=== PATIENT | female | born 2000 | race Caucasian/White ===

== ENCOUNTER 2022-01-15 14:24 | Outpatient (CLI) | payer OTHER, SELFPAY ==
[2022-01-15 15:27] LABS: Anion Gap 13.6 (5-19); Blood Urea Nitrogen 10 mg/dL (6-20); Calcium 8.3 mg/dL (8.5-10.5); Carbon Dioxide 24 mmol/L (22-29); Chloride 106 mmol/L (98-107); Glomerular Filtration Rate 154.3 mL/min (90-130); Glucose 90 mg/dL (65-115); Osmolality Calculated 289 mOsm/kg (285-295); Potassium 3.6 mmol/L (3.5-5.1); Sodium 140 mmol/L (136-145)
[2022-01-23 23:53] LABS: Plasma Renin Activity LC/MS/MS 0.31 ng/mL/h (0.25-5.82)
== END 2022-01-15 14:25 | disposition home or self-care (01) ==
LOC: LAB 14:25
PROVIDERS: Visit Provider Internal Medicine
DX: E27.1 Primary adrenocortical insufficiency (principal)
CPT/HCPCS: 36415; 80048; 84244

== ENCOUNTER 2022-11-03 08:44 | Outpatient (CLI) | payer OTHER, SELFPAY ==
[2022-11-03 09:39] LABS: Anion Gap 11.6 (5-19); Blood Urea Nitrogen 10 mg/dL (6-20); Carbon Dioxide 24 mmol/L (22-29); Chloride 106 mmol/L (98-107); Glomerular Filtration Rate 152.9 mL/min (90-130); Glucose 71 mg/dL (65-115); Osmolality Calculated 284 mOsm/kg (285-295); Potassium 3.6 mmol/L (3.5-5.1); Sodium 138 mmol/L (136-145)
[2022-11-09 00:55] LABS: Plasma Renin Activity LC/MS/MS 1.21 ng/mL/h (0.25-5.82)
== END 2022-11-03 08:45 | disposition home or self-care (01) ==
LOC: LAB 08:49
PROVIDERS: PCP Family Medicine; Visit Provider Internal Medicine
DX: E27.1 Primary adrenocortical insufficiency (principal)
CPT/HCPCS: 36415; 80048; 84244

== ENCOUNTER → 2023-01-30 10:40 | Outpatient (BNVA) | payer OTHER, SELFPAY | PROVIDERS: PCP Family Medicine; Visit Provider Internal Medicine | DX: E27.1 Primary adrenocortical insufficiency (principal); E16.2 Hypoglycemia, unspecified; R68.89 Other general symptoms and signs; R53.83 Other fatigue | CPT/HCPCS: 36415; 84439; 84443; 86376; 86800; 99214 ==

== ENCOUNTER 2023-07-21 08:24 | Outpatient (CLI) | payer OTHER, SELFPAY ==
[2023-07-21 09:16] LABS: Blood Urea Nitrogen 13 mg/dL (6-20); Calcium 9.4 mg/dL (8.5-10.5); Carbon Dioxide 25 mmol/L (22-29); Chloride 103 mmol/L (98-107); Glomerular Filtration Rate 88.1 mL/min (90-130); Glucose 95 mg/dL (65-115); Osmolality Calculated 284 mOsm/kg (285-295); Sodium 137 mmol/L (136-145)
[2023-07-26 21:10] LABS: Plasma Renin Activity LC/MS/MS 20.67 ng/mL/h (0.25-5.82)
== END 2023-07-21 08:25 | disposition home or self-care (01) ==
PROVIDERS: PCP Family Medicine; Visit Provider Internal Medicine
DX: E16.2 Hypoglycemia, unspecified (principal); E27.1 Primary adrenocortical insufficiency; R53.83 Other fatigue; R68.89 Other general symptoms and signs
CPT/HCPCS: 36415; 80048; 84244

== ENCOUNTER → 2023-09-22 07:26 | Outpatient (BNVA) | payer OTHER, SELFPAY | PROVIDERS: PCP Family Medicine; Visit Provider Internal Medicine | DX: E27.1 Primary adrenocortical insufficiency (principal); E16.2 Hypoglycemia, unspecified; R68.89 Other general symptoms and signs; R53.83 Other fatigue | CPT/HCPCS: 99214 ==